=== PATIENT | female | born 1995 | race African-American/Black ===

== ENCOUNTER 2024-02-25 17:13 | Emergency (ER) | payer SELFPAY ==
[~2024-02-25] VITALS: Ht 154.9 cm; Wt 81.6 kg
[2024-02-25 17:15] VITALS: TEMP 97.6
[2024-02-25] MEDS ORDERED: SODIUM CHLORIDE 0.9% 100 ML ONE (18:04)
[2024-02-25] MEDS ORDERED: IOPAMIDOL 370 MG/ML 100 ML INFUS..BTL INJ ONE (18:04)
[2024-02-25] MEDS: SODIUM CHLORIDE 0.9% 500ML 500 ML IV ONE ×2 (19:00→19:39)
[2024-02-25 19:16] VITALS: PULSE 84; RESP 18
[2024-02-25 20:40] VITALS: BP 130/80; PULSE 84; RESP 18; TEMP 97.6; O2SAT 100
== END 2024-02-25 20:40 | disposition home or self-care (01) ==
LOC: FSED 17:17
DX: R06.00 Dyspnea, unspecified (principal); R00.2 Palpitations; R79.1 Abnormal coagulation profile; K76.0 Fatty (change of) liver, not elsewhere classified; F41.9 Anxiety disorder, unspecified; R94.31 Abnormal electrocardiogram [ECG] [EKG]
CPT/HCPCS: 71260; 80053; 80307; 81003; 81025; 82553; 83880; 84484; 85025; 85379; 93005; 99284; J7040; J7050; Q9967